=== PATIENT | female | born 1975 | race Asian ===

== ENCOUNTER 2019-01-25 08:03 | Emergency (ER) | payer BC, OTHER ==
[~2019-01-25] VITALS: Ht 160 cm; Wt 49.9 kg
[2019-01-25 08:05] VITALS: BP_SYST 148
--- NOTE | 2019-01-25 08:12 | NUR ---
Patient to ER bed 7 to gown for evaluation. Side rails up. Report given to Klaus TORRES.
--- NOTE | 2019-01-25 08:13 | NUR ---
Pt is here for c/o epigastric pain radiating to back for 3 days, denied nausea, vomiting, no diarrhea. Pt has no medical hx. Pt denied no SOB, respirations even and unlabored, no acute distress noted. Pt is placed on binder and box builder and continuous pulse ox.
--- NOTE | 2019-01-25 08:15 | NUR ---
Dr. Gordillo at bedside to assess pt.
--- NOTE | 2019-01-25 08:18 | NUR ---
EKG done at bedside per MD orders.
[2019-01-25] MEDS ORDERED: MAG HYDROX/AL HYDROX/SIMETH 30 ML, DICYCLOMINE HCL 20 MG, LIDOCAINE VISCOUS 2% 15ML (PO... PO ONE ×3 (08:45)
[2019-01-25 09:06] LABS: BILIRUBIN,URINE NEGATIVE (NEGATIVE); BLOOD, URINE NEGATIVE (NEGATIVE); CLARITY/URINE CLEAR (CLEAR); COLOR,URINE YELLOW (YELLOW); GLUCOSE,URINE NEGATIVE (NEGATIVE); KETONES,URINE NEGATIVE (NEGATIVE); LEUKOCYTE ESTERASE ,URINE NEGATIVE (NEGATIVE); NITRITE, URINE NEGATIVE (NEGATIVE); PROTEIN URINE NEGATIVE (NEGATIVE); UROBILINOGEN,URINE 0.2 (0.2-1.0)
[2019-01-25 09:30] LABS: BASOPHILS % (AUTO) 0.3 % (0.0-2.0); EOSINOPHILS % (AUTO) 0.6 % (0.0-4.0); HEMATOCRIT 44.4 % (36-48); HEMOGLOBIN 15.4 g/dL (12.0-16.0); LYMPHOCYTES # (AUTO) 1.5 K/uL (1.0-5.5); LYMPHOCYTES % (AUTO) 27.7 % (20.5-51.5); MEAN CORPUSCULAR HEMOGLOBIN 31 pg (27-31); MEAN CORPUSCULAR HGB CONC 35 % (32-36); MEAN CORPUSCULAR VOLUME 89 fL (79.0-98.0); MONOCYTES # (AUTO) 0.4 K/uL (0.0-1.0); MONOCYTES % (AUTO) 6.9 % (1.7-9.3); NEUTROPHILS # (AUTO) 3.5 K/uL (1.8-7.7); NEUTROPHILS % (AUTO) 64.5 % (40.0-70.0); PLATELET COUNT (AUTO) 294 K/uL (130-430); RED BLOOD CELL COUNT(AUTO) 4.97 MIL/uL (4.2-6.2); RED CELL DISTRIBUTION WIDTH 12.6 % (9.0-15.0); WHITE BLOOD COUNT (AUTO) 5.5 K/uL (4.8-10.8)
[2019-01-25 09:37] LABS: ANION GAP 11 (5-15); CHLORIDE 103 mmol/L (98-107); GLUCOSE 92 mg/dL (70-99); SODIUM SERUM 140 mmol/L (136-145); UREA NITROGEN, BLOOD 11 mg/dL (8-21)
[2019-01-25 09:41] LABS: GFR AFRICAN AMERICAN 140 mL/min (>90)
[2019-01-25 09:46] LABS: ALANINE AMINOTRANSFERASE 24 U/L (12-78); ALBUMIN 3.9 g/dL (3.4-4.8); ASPARTATE AMINOTRANSFERASE 22 U/L (10-37); LIPASE 82 U/L (73-393); TOTAL BILIRUBIN 0.5 mg/dL (0.0-1.0)
--- NOTE | 2019-01-25 10:17 | NUR ---
Pt is resting in bed, states her epigastric pain is better, down to 3/10. Will continue to monitor pt.
--- NOTE | 2019-01-25 11:00 | NUR ---
Patient given written and verbal discharge instructions and verbalizes understanding. ER MD discussed with patient the results and treatment provided. Patient in stable condition. ID arm band removed. Rx of Protonix given. Patient educated on pain management and to follow up with PMD. Pain Scale 0.Opportunity for questions provided and answered. Medication side effect fact sheet provided.
[2019-01-25 11:05] VITALS: BP_SYST 124
== END 2019-01-25 11:00 | disposition home or self-care (01) ==
LOC: SED 08:03
DX: K21.9 Gastro-esophageal reflux disease without esophagitis (principal); Z88.8 Allergy status to other drugs, medicaments and biological substances; Z90.710 Acquired absence of both cervix and uterus
CPT/HCPCS: 36415; 71045; 80053; 81003; 83690; 84484; 85025; 99284; J2001; 93005

== ENCOUNTER 2022-11-04 11:04 | Emergency (ER) | payer BC, OTHER ==
[~2022-11-04] VITALS: Ht 157.5 cm; Wt 49.9 kg
[2022-11-04 11:16] VITALS: BP_SYST 141
[2022-11-04] MEDS ORDERED: KETOROLAC TROMETHAMINE 30 MG VIAL IM ONE (12:00)
[2022-11-04] MEDS ORDERED: NAPR-1172 PO (12:37)
[2022-11-04] MEDS ORDERED: ACET-2634 PO (12:37)
[2022-11-04 13:04] VITALS: BP_SYST 141
== END 2022-11-04 13:06 | disposition home or self-care (01) ==
LOC: SED 11:04
DX: S93.602A Unspecified sprain of left foot, initial encounter (principal); Z88.3 Allergy status to other anti-infective agents; Z88.8 Allergy status to other drugs, medicaments and biological substances; Z79.899 Other long term (current) drug therapy; X58.XXXA Exposure to other specified factors, initial encounter; Y93.89 Activity, other specified; Y92.89 Other specified places as the place of occurrence of the external cause; Y99.8 Other external cause status
CPT/HCPCS: 99283; 73610; 96372; J1885